=== PATIENT | female | born 1950 | race Caucasian/White ===

== ENCOUNTER 2019-04-16 10:38 | Outpatient (CLI) | payer MEDICARE ==
--- NOTE | 2019-04-16 15:37 | ULT ---
ULTRASOUND RETROPERITONEUM COMPLETE (RENAL) DOPPLER DUPLEX: DATE: 04/16/2019 HISTORY: 68-year-old female with hypertension and chronic kidney disease, Stage III, N18.3. Dysuria, R30.0. TECHNIQUE: Schmidt scale, color flow, and spectral analysis of kidneys, bladder, and select segments and branches o f bilateral renal arteries. FINDINGS: The right kidney measures 9.5 x 5.5 x 4.5 cm. The left kidney measures 9.0 x 6.0 x 4.5 cm. Both kid neys have normal cortical thickness and normal cortical echogenicity. There is no hydronephrosis. C ursory images of the urinary bladder demonstrate no gross abnormality. No moderate sized or large cys t or solid renal mass identified. Urinary bladder volume: 255 mL. Bilateral ureteral jets demonstrated. Highest peak systolic velocities: Right renal artery: 135 cm/s Left renal artery: 120 cm/s Aorta: 55 cm/s Renal Artery/Aorta Ratio: Right: 2.5 Left: 2.1 Resistive Indices: Right arcuate: 0.65 Left arcuate: 0.59 IMPRESSION: Normal jn [] POS: OFF
== END 2019-04-16 10:39 | disposition home or self-care (01) ==
LOC: BICULT 10:38
PROVIDERS: ATTEND Internal Medicine Nephrology
DX: I13.0 Hypertensive heart and chronic kidney disease with heart failure and stage 1 through stage 4 chronic kidney disease, or unspecified chronic kidney disease (principal); I50.9 Heart failure, unspecified; N18.3 Chronic kidney disease, stage 3 (moderate); D63.1 Anemia in chronic kidney disease; I25.10 Atherosclerotic heart disease of native coronary artery without angina pectoris; R79.89 Other specified abnormal findings of blood chemistry; M85.80 Other specified disorders of bone density and structure, unspecified site; R30.0 Dysuria
CPT/HCPCS: 76770; 93975